=== PATIENT | female | born 1990 ===

== ENCOUNTER 2017-06-04 06:59 | Emergency (ER) | payer OTHER ==
--- NOTE | 2017-06-04 07:43 | ED PDOC ---
HPI: CCC, URI, Sore Throat Time Seen by Provider: 06/04/17 07:27 Chief Complaint (Provider): Fever, Cough History Per: Patient History/Exam Limitations: no limitations Onset/Duration Of Symptoms: Days (x 2) Current Symptoms Are (Timing): Still Present Associated Symptoms: Fever, Myalgias Additional Complaint(s): 26 year old female presents to the ED complaining of a fever, body aches, back pain, and abdominal pain for 2 days. Patient also has a scant cough. No nausea, vomiting, diarrhea, dysuria, or frequency. Patient denies any past medical history. PMD: Provider TBLoc Past Medical History Reviewed: Historical Data, Nursing Documentation, Vital Signs Vital Signs: Last Vital Signs Temp 98.0 F 06/04/17 08:44 Pulse 90 06/04/17 07:42 Resp 16 06/04/17 07:42 BP 122/64 06/04/17 07:42 Pulse Ox 98 06/04/17 07:42 - Medical History PMH: No Chronic Diseases - Family History Family History: States: Unknown Family Hx - Home Medications Home Medications: Ambulatory Orders Medication Instructions Recorded Naproxen [Naprosyn] 500 mg PO Q12H #20 tab 06/04/17 Sulfamethoxazole/Trimethoprim 1 tab PO BID #20 tab 06/04/17 [Bactrim DS 800 mg-160 mg] - Allergies Allergies/Adverse Reactions: Allergies Allergy/AdvReac Type Severity Reaction Status Date / Time No Known Allergies Allergy Verified 06/04/17 07:41 Review of Systems ROS Statement: Except As Marked, All Systems Reviewed And Found Negative Constitutional: Positive for: Fever, Other (Body aches) Respiratory: Positive for: Cough Gastrointestinal: Positive for: Abdominal Pain. Negative for: Nausea, Vomiting , Diarrhea Genitourinary Female: Negative for: Dysuria, Frequency Musculoskeletal: Positive for: Back Pain Physical Exam - Reviewed Nursing Documentation Reviewed: Yes Vital Signs Reviewed: Yes - Physical Exam Appears: Positive for: Non-toxic, No Acute Distress Head Exam: Positive for: ATRAUMATIC, NORMAL INSPECTION, NORMOCEPHALIC Skin: Positive for: Normal Color, Warm, Dry Eye Exam: Positive for: EOMI, Normal appearance, PERRL ENT: Positive for: Normal ENT Inspection Neck: Positive for: Normal, Painless ROM, Supple Cardiovascular/Chest: Positive for: Regular Rate, Rhythm. Negative for: Murmur Respiratory: Positive for: Normal Breath Sounds. Negative for: Respiratory Distress Gastrointestinal/Abdominal: Positive for: Bowel Sounds (present), Soft, Tenderness (mild suprapubic tenderness) Back: Positive for: Normal Inspection. Negative for: L CVA Tenderness, R CVA Tenderness Extremity: Positive for: Normal ROM. Negative for: Deformity Neurologic/Psych: Positive for: Alert, Oriented. Negative for: Motor/Sensory Deficits - Laboratory Results Urine POC: Negative Medical Decision Making Medical Decision Making: Time: 7:37 Initial Plan: --Urine dipstick --Urine --Influenza A B 7:57 Ordered urine culture 8:38 Ordered chest x-ray Scribe Attestation: Documented by Sandy Marcelo, acting as a scribe for Carmelo Shields MD Provider Scribe Attestation: All medical record entries made by the Scribe were at my direction and personally dictated by me. I have reviewed the chart and agree that the record accurately reflects my personal performance of the history, physical exam, medical decision making, and the department course for this patient. I have also personally directed, reviewed, and agree with the discharge instructions and disposition. Disposition - Clinical Impression Clinical Impression: UTI (urinary tract infection) - Patient ED Disposition Is Patient to be Admitted: No Counseled Patient/Family Regarding: Studies Performed, Diagnosis, Need For Followup, Rx Given - Disposition Referrals: [facility] [Outside] Disposition: Routine/Home Disposition Time: 09:15 Condition: FAIR Prescriptions: Naproxen [Naprosyn] 500 mg PO Q12H #20 tab Sulfamethoxazole/Trimethoprim [Bactrim DS 800 mg-160 mg] 1 tab PO BID #20 tab Instructions: Urinary Tract Infection in Women (ED)
[2017-06-04 07:46] VITALS: BP 122/64; PULSE 90; RESP 16; O2SAT 98
[2017-06-04 08:44] VITALS: TEMP 98
--- NOTE | 2017-06-04 11:39 | RAD ---
HISTORY: cough COMPARISON: Spell of TECHNIQUE: Chest PA and lateral FINDINGS: LUNGS: No acute consolidation. . There is a tiny elliptical shaped nodule seen in the left upper lung field overlying the left anterior 1st rib that could represent a tiny parenchymal nodule or granuloma. Repeat chest radiograph in 2 months recommended to assess stability. PLEURA: No significant pleural effusion identified. No pneumothorax apparent. CARDIOVASCULAR: Normal. OSSEOUS STRUCTURES: No significant abnormalities. VISUALIZED UPPER ABDOMEN: Normal. OTHER FINDINGS: None. IMPRESSION: No acute consolidation. . There is a tiny elliptical shaped nodule seen in the left upper lung field overlying the left anterior 1st rib that could represent a tiny parenchymal nodule or granuloma. Repeat chest radiograph in 2 months recommended to assess stability.
== END 2017-06-04 09:47 | disposition home or self-care (01) ==
LOC: H.ER 06:59
DX: N39.0 Urinary tract infection, site not specified (principal)